=== PATIENT | male | born 1955 | race Asian ===

== ENCOUNTER 2021-08-26 06:27 | Day surgery (SDC) | payer OTHER, BC, SELFPAY ==
[~2021-08-26] VITALS: Ht 167.6 cm; Wt 69.4 kg
[2021-08-26] MEDS ORDERED: MIDAZOLAM HCL 5 MG/5 ML VIAL ONE ×2 (08:44→10:00)
[2021-08-26] MEDS ORDERED: fentaNYL CITRATE/PF 100 MCG/2 ML AMP ONE ×2 (08:44→10:00)
[2021-08-26] MEDS ORDERED: SIMETHICONE 80 MG TAB.CHEW ONE ×2 (09:22→09:27)
[2021-08-26] MEDS ORDERED: SIMETHICONE 40 MG/0.6 ML ML ONE (09:40)
[2021-08-26 14:02] VITALS: BP_SYST 102
== END 2021-08-26 11:15 | disposition home or self-care (01) ==
LOC: SDS 06:27 → SMU 06:29 → SDS 11:15
PROVIDERS: ATTEND Internal Medicine
DX: K59.00 Constipation, unspecified (principal); K63.5 Polyp of colon; K57.30 Diverticulosis of large intestine without perforation or abscess without bleeding; K64.8 Other hemorrhoids; E11.9 Type 2 diabetes mellitus without complications; I10 Essential (primary) hypertension; F17.210 Nicotine dependence, cigarettes, uncomplicated; Z20.822 Contact with and (suspected) exposure to COVID-19; Z79.899 Other long term (current) drug therapy
CPT/HCPCS: 36415; 43239; 45380; 45385; 82962; 87081; 87426; 88305; 88312; 88313; 88341; 88342; 99152; 99153; G0378; J2250; J3010; U0003